=== PATIENT | male | born 1965 | race Caucasian/White ===

== ENCOUNTER 2017-02-19 10:57 | Observation (INO) | payer SELFPAY ==
[~2017-02-19] VITALS: Ht 170.2 cm; Wt 72.0 kg
[~2017-02-19 10:57] MED LIST: Z.0.NO CURRENT MEDS
[2017-02-19 11:02] VITALS: BP 215/99; PULSE 92; RESP 18; TEMP 98.3; O2SAT 96
[2017-02-19 11:13] VITALS: BP 190/85; PULSE 80; RESP 18; O2SAT 97
[2017-02-19] MEDS ORDERED: SODIUM CHLORIDE 0.9% FLUSH 10 ML FLUSH IVF PRN (11:15)
[2017-02-19] MEDS ORDERED: ASPIRIN 81 MG CHEW TAB PO ONE (11:15)
[2017-02-19 11:22] LABS: AUTOMATED NEUTROPHIL # 8.5 TH/MM3 (1.8-7.7); BASOPHIL % 0.3 % (0.0-2.0); EOSINOPHIL % 0.1 % (0.0-4.0); HEMATOCRIT 48.6 % (39.0-51.0); HEMO FLAGS DIFF FINAL; LYMPH % 9.3 % (9.0-44.0); LYMPHOCYTE # 0.9 TH/MM3 (1.0-4.8); MEAN CELL VOLUME 84.9 FL (80.0-100.0); MEAN CORPUSCULAR HEMOGLOBIN 27.4 PG (27.0-34.0); MEAN CORPUSCULAR HGB CONC 32.3 % (32.0-36.0); MONO % 5.2 % (0.0-8.0); NEUT % 85.1 % (16.0-70.0); PLATELET COUNT 229 TH/MM3 (150-450); RED BLOOD COUNT 5.72 MIL/MM3 (4.50-5.90); RED CELL DISTRIBUTION WIDTH 12.6 % (11.6-17.2); WHITE BLOOD COUNT 9.9 TH/MM3 (4.0-11.0)
--- NOTE | 2017-02-19 11:26 | RADRPT ---
EXAM DATE/TIME: 02/19/2017 11:14 [place] COMPARISON: No previous studies available for comparison. INDICATIONS : Chest pain MEDICAL HISTORY : None. SURGICAL HISTORY : None. ENCOUNTER: Initial ACUITY: 2 days PAIN SCORE: 7/10 LOCATION: Bilateral chest FINDINGS: A single view of the chest demonstrates the lungs to be symmetrically aerated without evidence of mas s, infiltrate or effusion. The cardiomediastinal contours are unremarkable. Osseous structures are intact. CONCLUSION: No acute disease. Aleyda Ferreiar MD on February 19, 2017 at 11:24 Board Certified Radiologist. This report was verified electronically.
[2017-02-19 11:28] LABS: CHLORIDE 102 MEQ/L (98-107); POTASSIUM 3.8 MEQ/L (3.5-5.1); SODIUM (NA) 139 MEQ/L (136-145)
[2017-02-19 11:31] LABS: ANION GAP 11 MEQ/L (5-15); BICARBONATE 26.1 MEQ/L (21.0-32.0); BLOOD UREA NITROGEN 22 MG/DL (7-18); MAGNESIUM 2.1 MG/DL (1.5-2.5)
[2017-02-19 11:34] LABS: GLOMERULAR FILTRATION RATE 49 ML/MIN (>89)
[2017-02-19 11:37] LABS: CREATINE KINASE 148 U/L (39-308)
[2017-02-19 11:45] VITALS: O2SAT 97
--- NOTE | 2017-02-19 11:48 | PD ---
HPI . Chest pain Chief Complaint: Chest Pain Time Seen by Provider: 11:01 Travel History International Travel<30 days: No Contact w/Intl Traveler<30days: No Traveled to known affect area: No History of Present Illness HPI This patient presents with chief complaint of chest pain. It started a couple days ago. The pain has been constant but has waxed and waned. It is rated 7/ 10 at its maximum and is currently 2/10. He describes the pain as squeezing and localizes pain to just left of his lower sternum. He denies any associated shortness of breath or nausea but does state that he's had some associated diaphoresis. He has noted no exacerbating factors but states that one beer has given him relief. He did exercise at the gym this morning with no exacerbation of his chest pain. The patient reports a known history of hypertension but is noncompliant with medications. He states that the medications make him feel bad so he does not take them. The patient states that he has been under a lot of stress lately at work and has not been sleeping well. PFSH Past Medical History Medical History: Denies Significant Hx Cardiovascular Problems: Yes (HTN) Diminished Hearing: No Influenza Vaccination: No ?: Not Social History Alcohol Use: Yes Tobacco Use: No Allergies-Medications (Allergen,Severity, Reaction): Coded Allergies: No Known Allergies (Unverified , 02/19/17) Reported Meds & Prescriptions Reported Meds & Active Scripts Active No Active Prescriptions or Reported Medications Review of Systems Except as stated in HPI: all other systems reviewed are Neg General / Constitutional: Positive: Other (diaphoresis) Cardiovascular: Positive: Chest Pain or Discomfort Respiratory: No: Shortness of Breath Gastrointestinal: No: Nausea Psychiatric: Positive: Other (stress and insomnia) Physical Exam Narrative Vital Signs Date Time Temp Pulse Resp B/P (MAP) Pulse Ox O2 Delivery O2 Flow Rate FiO2 02/19/17 11:13 80 18 190/85 (120) 97 Room Air 02/19/17 11:13 97 Room Air 02/19/17 11:03 92 Room Air 02/19/17 11:02 98.3 92 18 215/99 (137) 96 GENERAL: Healthy-appearing man who is in no acute distress. SKIN: Warm and dry. HEAD: Atraumatic. Normocephalic. EYES: Pupils equal and round. Extraocular movements are intact. ENT: No nasal bleeding or discharge. Mucous membranes pink and moist. NECK: Trachea midline. Neck is supple. CARDIOVASCULAR: Regular rate and rhythm. Heart sounds are normal. RESPIRATORY: No accessory muscle use. Lungs are clear with full air movement throughout. Chest wall is nontender. GASTROINTESTINAL: Abdomen soft, non-tender, nondistended. MUSCULOSKELETAL: No obvious deformities. No edema. No calf tenderness. NEUROLOGICAL: Awake and alert. No obvious cranial nerve deficits. Motor grossly within normal limits. Normal speech. PSYCHIATRIC: Appropriate mood and affect; insight and judgment normal. Data Data Last Documented VS Vital Signs Date Time Temp Pulse Resp B/P (MAP) Pulse Ox O2 Delivery O2 Flow Rate FiO2 02/19/17 11:13 80 18 190/85 (120) 97 Room Air 02/19/17 11:02 98.3 Orders Orders Basic Metabolic Panel (Bmp) (02/19/17 11:01) Ckmb (Isoenzyme) Profile (02/19/17 11:01) Complete Blood Count With Diff (02/19/17 11:01) Magnesium (Mg) (02/19/17 11:01) Prothrombin Time / Inr (Pt) (02/19/17 11:01) Act Partial Throm Time (Ptt) (02/19/17 11:01) Troponin I (02/19/17 11:01) Chest, Single Ap (02/19/17 11:01) Ecg Monitoring (02/19/17 11:01) Bilateral Bp Monitoring (02/19/17 11:01) Iv Access Insert/Monitor (02/19/17 11:01) Oximetry (02/19/17 11:01) Oxygen Administration (02/19/17 11:01) Aspirin Chew (Aspirin Chew) (02/19/17 11:15) Sodium Chloride 0.9% Flush (Ns Flush) (02/19/17 11:15) CKMB (02/19/17 11:10) CKMB% (02/19/17 11:10) Nitroglycerin 2% Oint (Nitroglycerin 2% (02/19/17 12:00) Metoprolol Tartrate (Lopressor) (02/19/17 12:00) Labs Laboratory Tests Test 02/19/17 11:10 White Blood Count 9.9 TH/MM3 Red Blood Count 5.72 MIL/MM3 Hemoglobin 15.7 GM/DL Hematocrit 48.6 % Mean Corpuscular Volume 84.9 FL Mean Corpuscular Hemoglobin 27.4 PG Mean Corpuscular Hemoglobin Concent 32.3 % Red Cell Distribution Width 12.6 % Platelet Count 229 TH/MM3 Mean Platelet Volume 7.8 FL Neutrophils (%) (Auto) 85.1 % Lymphocytes (%) (Auto) 9.3 % Monocytes (%) (Auto) 5.2 % Eosinophils (%) (Auto) 0.1 % Basophils (%) (Auto) 0.3 % Neutrophils # (Auto) 8.5 TH/MM3 Lymphocytes # (Auto) 0.9 TH/MM3 Monocytes # (Auto) 0.5 TH/MM3 Eosinophils # (Auto) 0.0 TH/MM3 Basophils # (Auto) 0.0 TH/MM3 CBC Comment DIFF FINAL Differential Comment Prothrombin Time 11.0 SEC Prothromb Time International Ratio 1.0 RATIO Activated Partial Thromboplast Time 23.0 SEC Blood Urea Nitrogen 22 MG/DL Creatinine 1.50 MG/DL Random Glucose 104 MG/DL Calcium Level 9.2 MG/DL Magnesium Level 2.1 MG/DL Sodium Level 139 MEQ/L Potassium Level 3.8 MEQ/L Chloride Level 102 MEQ/L Carbon Dioxide Level 26.1 MEQ/L Anion Gap 11 MEQ/L Estimat Glomerular Filtration Rate 49 ML/MIN Total Creatine Kinase 148 U/L Creatine Kinase MB 1.4 NG/ML Troponin I LESS THAN 0.02 NG/ML MDM Medical Decision Making Medical Screen Exam Complete: Yes Emergency Medical Condition: Yes Medical Record Reviewed: Yes Interpretation(s) EKG shows a normal sinus rhythm with no acute ischemic changes. Differential Diagnosis Differential diagnosis of chest pain includes but is not limited to musculoskeletal pain, pulmonary embolism, acute coronary syndrome, pneumonia, pleurisy Narrative Course Patient with known history of hypertension and noncompliance with antihypertensives presents with a 2 day history of chest pain. EKG is unremarkable. Last Impressions Chest X-Ray 02/19/17 1101 Signed Impressions: Service Date/Time: Sunday, February 19, 2017 11:14 - CONCLUSION: No acute disease. Aleyda Ferreira MD CBC & BMP Diagram 02/19/17 11:10 Calcium Level 9.2, Magnesium Level 2.1 Cardiac enzymes are negative. The patient has been given aspirin. Metoprolol and nitroglycerin have been ordered. He will be admitted to the chest pain center for further evaluation. Physician Communication Physician Communication Dr. Barba Diagnosis Primary Impression: Chest pain Qualified Codes: R07.9 - Chest pain, unspecified Admitting Information Admitting Physician Requests: Observation Scripts No Active Prescriptions or Reported Meds Condition: Poonam Pascal MD Feb 19, 2017 11:48
[2017-02-19 11:49] LABS: CKMB 1.4 NG/ML (0.5-3.6)
[2017-02-19] MEDS ORDERED: NITROGLYCERIN 2% OINT 1 GM PACKET TOP ONE (12:00)
[2017-02-19] MEDS ORDERED: METOPROLOL TARTRATE 25 MG TAB PO ONE (12:00)
[2017-02-19] MEDS ORDERED: SODIUM CHLOR 0.9% 1000 ML INJ 1,000 ML IV SCH (12:01)
[2017-02-19] MEDS ORDERED: SENNOSIDES 8.6 MG TAB PO PRN (12:15)
[2017-02-19] MEDS ORDERED: NITROGLYCERIN 0.4 MG SL 25 TABS/BTL SL PRN (12:15)
[2017-02-19] MEDS ORDERED: SODIUM CHLORIDE 0.9% FLUSH 10 ML FLUSH IV FLUSH PRN (12:15)
[2017-02-19] MEDS ORDERED: BISACODYL 10 MG SUPP RECTAL PRN (12:15)
[2017-02-19] MEDS ORDERED: ACETAMINOPHEN 500 MG CPLT PO PRN (12:15)
[2017-02-19] MEDS ORDERED: MORPHINE SULFATE 4 MG/ML INJ IV PRN (12:15)
[2017-02-19] MEDS ORDERED: hydrOXYzine PAMOATE 25 MG CAP PO PRN (12:15)
[2017-02-19] MEDS ORDERED: NALOXONE HCL 0.4 MG/ML AMP IV PRN (12:15)
[2017-02-19] MEDS ORDERED: ONDANSETRON HCL 4 MG/2 ML VIAL IV PRN (12:15)
[2017-02-19] MEDS ORDERED: LACTULOSE SYRUP 20 GM/30 ML CUP PO PRN (12:15)
[2017-02-19] MEDS ORDERED: ACETAMINOPHEN/HYDROcodone 325 MG/7.5 MG TAB PO PRN (12:15)
[2017-02-19] MEDS ORDERED: cloNIDine HCL 0.1 MG TAB PO PRN (12:30)
[2017-02-19] MEDS ORDERED: hydrALAZINE HCL 20 MG/ML VIAL IV PRN (12:30)
[2017-02-19 12:33] VITALS: BP 169/81; PULSE 55; RESP 18; O2SAT 97
--- NOTE | 2017-02-19 13:38 | HHI.PR ---
Addendum to Inpatient Note Additional Information Informed by RN pt already left AMA. Not seen by Frederic Rutledge MD Feb 19, 2017 13:38
[2017-02-19] MEDS ORDERED: NITROGLYCERIN 2% OINT 1 GM PACKET TOP SCH (18:00)
[2017-02-19] MEDS ORDERED: DOCUSATE SODIUM 50 MG/SENNA 8.6 MG TAB PO SCH (21:00)
[2017-02-19] MEDS ORDERED: SODIUM CHLORIDE 0.9% FLUSH 10 ML FLUSH IV FLUSH SCH (21:00)
[2017-02-20] MEDS ORDERED: ASPIRIN 325 MG TAB PO SCH (09:00)
--- NOTE | 2017-02-20 14:28 | EKG ---
Date Performed: 02/19/2017 Time Performed: 11:00:46 PTAGE: 51 years EKG: Sinus rhythm BORDERLINE LEFT AXIS DEVIATION BORDERLINE ECG INTERPRETATION BASED ON A DEFAULT AGE OF 38 YEARS NO PREVIOUS TRACING DOCTOR: Kimo Grimm Interpretating Date/Time 02/20/2017 14:25:56
== END 2017-02-19 13:01 | disposition left against medical advice (07) ==
LOC: PHED 10:57 → PHEDA 12:04 → MERGE 12:04 → PH3A 12:37
PROVIDERS: ADMIT Internal Medicine; ATTEND Internal Medicine
DX: R07.9 Chest pain, unspecified (principal); I10 Essential (primary) hypertension; R94.31 Abnormal electrocardiogram [ECG] [EKG]; Z91.14 Patient's other noncompliance with medication regimen
CPT/HCPCS: 71010; 80048; 82550; 82552; 83735; 84484; 85025; 85610; 85730; 93005; 99285; G0378

== ENCOUNTER 2017-02-24 20:08 | Emergency (ER) | payer SELFPAY ==
[~2017-02-24] VITALS: Ht 170.2 cm; Wt 72.5 kg
[2017-02-24 20:14] VITALS: BP 217/102; PULSE 75; RESP 20; TEMP 97.5; O2SAT 99
[2017-02-24] MEDS ORDERED: ADVI200T17 PO (20:44)
[2017-02-24 20:58] VITALS: BP 199/106
[2017-02-24] MEDS ORDERED: AMBI5TAB PO (20:58)
--- NOTE | 2017-02-24 20:58 | PD ---
HPI Chief Complaint: Anxiety Time Seen by Provider: 20:41 Travel History International Travel<30 days: No Contact w/Intl Traveler<30days: No Traveled to known affect area: No History of Present Illness HPI This 51-year-old male is complaining of inability to sleep. He says he is only slept about 2 hours today slept about 10 hours old week. He does have a history of anxiety and he says he has been stressed both from family situations and his job. He denies thoughts of hurting himself. He has been taking Tylenol PM with minimal relief. He did take a half a Xanax which seemed to help him. He says he has not taken any sleeping pills. PFSH Past Medical History Cardiovascular Problems: Yes (HTN) Diabetes: No Diminished Hearing: No Hypertension: Yes Social History Alcohol Use: Yes Tobacco Use: No Substance Use: No Allergies-Medications (Allergen,Severity, Reaction): Coded Allergies: No Known Allergies (Unverified , 02/24/17) Reported Meds & Prescriptions Reported Meds & Active Scripts Active Reported Advil Pm (Ibuprofen-Diphenhydramine) 200-38 Mg Tab 1 Tab PO HS PRN Review of Systems General / Constitutional: No: Fever, Chills Eyes: No: Diploplia HENT: No: Headaches Cardiovascular: No: Chest Pain or Discomfort Gastrointestinal: No: Vomiting, Diarrhea Genitourinary: No: Urgency Psychiatric: Positive: Anxiety, No: Suicidal Ideations, Substance Abuse Hematologic/Lymphatic: No: Easy Bruising Physical Exam Narrative GENERAL: Well-developed male SKIN: Focused skin assessment warm/dry. HEAD: Atraumatic. Normocephalic. EYES: Pupils equal and round. No scleral icterus. No injection or drainage. ENT: No nasal bleeding or discharge. Mucous membranes pink and moist. NECK: Trachea midline. No JVD. CARDIOVASCULAR: Regular rate and rhythm. No murmur appreciated. RESPIRATORY: No accessory muscle use. Clear to auscultation. Breath sounds equal bilaterally. MUSCULOSKELETAL: No obvious deformities. No clubbing. No cyanosis. No edema. NEUROLOGICAL: Awake and alert. No obvious cranial nerve deficits. Motor grossly within normal limits. Normal speech. PSYCHIATRIC: Appropriate mood and affect; insight and judgment normal. Data Data Last Documented VS Vital Signs Date Time Temp Pulse Resp B/P (MAP) Pulse Ox O2 Delivery O2 Flow Rate FiO2 02/24/17 20:14 97.5 75 20 217/102 (140) 99 MDM Medical Decision Making Medical Screen Exam Complete: Yes Emergency Medical Condition: Yes Medical Record Reviewed: Yes Differential Diagnosis Differential includes insomnia, anxiety Narrative Course Patient is quite severe insomnia and I will give a trial of Ambien for him to try at home. I have cautioned him not to use it every day. The importance that he get a regular physician was stressed Diagnosis Primary Impression: Insomnia Qualified Codes: G47.00 - Insomnia, unspecified Scripts Zolpidem (Ambien) 5 Mg Tab 5 MG PO HS Y for INSOMNIA for 15 Days, TAB 0 Refills Prov: Jm Madrigal MD 02/24/17 Disposition: 01 DISCHARGE HOME Condition: Stable Jm Madrigal MD Feb 24, 2017 20:58
== END 2017-02-24 21:08 | disposition home or self-care (01) ==
LOC: PHED 20:08 → MERGE 20:08 → PHED 21:08
DX: G47.00 Insomnia, unspecified (principal); I10 Essential (primary) hypertension; Z86.79 Personal history of other diseases of the circulatory system
CPT/HCPCS: 99283